=== PATIENT | male | born 1995 | race Hispanic/Latino ===

== ENCOUNTER 2018-09-17 14:27 | Emergency (ER) | payer OTHER ==
[~2018-09-17] VITALS: Ht 172.7 cm; Wt 61.3 kg
[2018-09-17 14:27] VITALS: BP 121/76
== END 2018-09-17 15:35 | disposition home or self-care (01) ==
LOC: M ED 14:27
DX: S60.451A Superficial foreign body of left index finger, initial encounter (principal); X58.XXXA Exposure to other specified factors, initial encounter; Y92.89 Other specified places as the place of occurrence of the external cause

== ENCOUNTER 2019-05-12 23:53 | Emergency (ER) | payer OTHER ==
[~2019-05-12] VITALS: Ht 170.2 cm; Wt 61.4 kg
[2019-05-13] MEDS ORDERED: PATA2.5S OP (01:44)
[2019-05-13] MEDS ORDERED: CETIRIZINE (ZyrTEC) 10 MG TAB PO ONE (01:45)
[2019-05-13 01:57] VITALS: BP 133/88
== END 2019-05-13 02:04 | disposition home or self-care (01) ==
LOC: M ED 23:53
DX: H10.13 Acute atopic conjunctivitis, bilateral (principal)